=== PATIENT | male | born 1960 | race Native Hawaiian/Other Pacific Islander ===

== ENCOUNTER 2020-08-27 09:29 | Outpatient (CLI) | payer BC, OTHER ==
[~2020-08-27 09:29] MED LIST: LISI10TA11 PO
== END 2020-08-27 21:58 | disposition home or self-care (01) ==
LOC: INF 09:29
PROVIDERS: ATTEND Internal Medicine
DX: Z23 Encounter for immunization (principal)
CPT/HCPCS: 96372

== ENCOUNTER 2020-09-18 09:25 | Outpatient (CLI) | payer BC, OTHER | END 2020-09-18 21:04 | disposition home or self-care (01) | LOC: INF 09:25 | PROVIDERS: ATTEND Internal Medicine | DX: Z23 Encounter for immunization (principal) | CPT/HCPCS: 96372 ==